=== PATIENT | female | born 1990 | race Caucasian/White ===

== ENCOUNTER 2024-05-18 12:57 | Outpatient (RCR) | payer OTHER, SELFPAY ==
--- OUTSIDE RECORDS SUMMARY | 2024-05-16 15:49 | XMS_ITS | Clinical Summary ---
Author Organization [facility] Address Formerly [facility] [place] [address] Care Team Providers Care Car Deliverer Name Role Phone Manuela Ram MD Primary Care Provider + Allergies Active Allergy Reactions Criticality Noted Date Comments Amoxicillin Rash Low 05/16/2020 Medications LEXAPRO 10 MG tablet 11/26/2023 Active Cetirizine HCl (ZYRTEC ALLERGY) 10 MG Cap 11/30/2021 Active Fluticasone Propionate (FLONASE ALLERGY RELIEF NA) Active VIENVA 0.1-20 MG-MCG tablet 12/01/2023 Activ e semaglutide-weig ht management (WEGOVY) 0.25 mg/dose injection (PEN)Indications :Weight Loss Inject 0.25 mg into the skin once a week. Indications : Weight Loss 6 mL 3 12/01/2023 Active Active Problems Problem Noted Date Diagnosed Date Anxiety and depression 12/01/2023 Overview (12/01/2023): Working with psychiatry, just started lexapro. [facility], [facility]. Sees her virtually. Assessment & Plan (12/01/2023 2:37 PM CDT): Managed by psychiatry. Seasonal allergic rhinitis due to pollen 024 Obesity (BMI 30-39.9) 12/01/2023 Overview (12/01/2023): Patient would like to spend some time focusing on her mental health and weight before attempting another . She is interested in a GLP-1. She has no family history of thyroid cancer or personal history of pancreatitis. Assessment & Plan (12/01/2023 2:38 PM CDT): Discussed the option of GLP-1. Discussed major barriers of insurance coverage and shortages. Discussed side effects and benefits. We will initiate Wegovy and see whether it is covered. Patient would start OCP prior to treatment if she decides to pursue. In the meantime, discussed [employer] plant-based diet for weight management. She is quite interested in taking this approach as well. She will follow-up in 1 month if she begins Wegovy. Family History Medical History Relation Comments Hyperlipidemia Father fatty liver Father Thyroid Mother Relation Status Comments Father Alive Mother Alive Social History Tobacco Use Types Packs/Day Years Used Date Smoking Tobacco: Former Cigarettes 2 - 2012 Passive Smoke Exposure: Never Smokeless Tobacco: Never Tobacco Cessation:Counseling Given: No Comments:Social smoker Alcohol Use Standard Drinks/Week Comments Yes 0 (1 standard drink = 0.6 oz pur e alcohol) soc ially PHQ-2 Answer Date Recorded Patient Health Questionnaire-2 Score 0 12/01/2023 Comments Unknown Sex and Gender Information Value Date Recorded Sex Assigned at Not on file Legal Sex Female 12:55 PM CDT Gender Identity Not on file Sexual Orientation Not on file Last Filed Vital Signs Vital Sign Reading Time Taken Comments Blood Pressure 110/70 12/01/2023 1:34 PM CDT Pulse 81 12/01/2023 1:34 PM CDT Temperature 36.7 C (98.1 F) 12/01/2023 1:34 PM CDT Respiratory Rate - - Oxygen Saturation 97% 12/01/2023 1:34 PM CDT Inhaled Oxygen Concentration - - Weight 86.8 kg (191 lb 6.4 oz) 12/01/2023 1:34 P M CDT Height 162.6 cm (5' 4) 12/01/2023 1:34 PM CDT Body Mass Index 32.85 12/01/2023 1:34 PM CDT Plan of Treatment Upcoming Encounters Date Type Department Care Team (Late st Contact Info) Description 06/03/2024 9:30 AM CDT Office Visit [facility] - [place] [place] [id number] Manuela Ram MD [address] [place] [phone] Health Maintenance Due Date Last Done Comments Cervical Cancer Screening Pa p Smear (Age 30 to 64) Every 3 Years 1990 Annual Physical 1993 Hepatitis C 2008 DTaP, Tdap and Td Vaccines ( 1 - Tdap) 2009 Hepatitis B Vaccines (1 of 3 - 19+ 3-dose series) 2009 COVID-19 Vaccine ( - 2023-2 5 season) 2023 Influenza Adult (#1) 2023 PHQ-2 (Physician [place]) 02/24/2024 12/01/2023 Cervical Cancer Screening Pa p with HPV Testing (Age 30 to 64) Every 5 Years 12/03/2028 12/04/2023, 08/15/2020, 08/09/2020 Cervical Cancer Screening wi th HPV 12/03/2028 HPV Vaccines Aged Out No longer eligi ble based on patient's age to complete this topic Meningococcal B Vaccine Aged Out No l onger eligible based on patient's age to complete this topic Meningococcal Vaccine Aged Out No jonas ivonne eligible based on patient's age to complete this topic Pneumococcal Vaccine: Pediatrics (0 to 5 Years) and At-Risk Patients (6 to 64 Years) Aged Out No longer eligible b ased on patient's age to complete this topic RSV Immunizations Under 20 Months Aged Out No longer eligible b ased on patient's age to complete this topic Procedures Procedure Name Priority Date/Time Associated Diagnosis Comments OUTSIDE CYTOPATH CERV/VAG IN TERPRET (PAP) 12/04/2023 from Last 3 Months or Most Recently Relevant to Health Maintenance Results * PAP SMEAR WITH HPV (12/04/2023) 12/04/2023 [facility] Scanned SCANNING Final Resu lt from Last 3 Months or Most Recently Relevant to Health Maintenance Insurance [employer] Care Teams Car Deliverer Relationship Specialty Start Date End Date Manuela Ram MD [address] [place] [phone] PCP - General FAMILY PRACTICE 12/01/23
--- OUTSIDE RECORDS SUMMARY | 2024-05-16 15:50 | XMS_ITS ---
Author Organization [employer] Address [address] [place] [address] Care Team Providers Care Public Service Director Name Role Phone Sona Luis Unavailable [phone] REASON FOR VISIT Control Prescription Medications Medication SIG (Take, Route, Fr equency, Duration) Notes Start Date End Date Status Sronyx 0.1-20 MG-MCG 1 tablet Orally Onc e a day for 84 days 03/24/2022 Active Social History Sex Assigned At : Social History Observation Description Sex Assigned At Female Encounters Encounter Location Date Provider Diagnosis Raheem Casillas [address] [place] [address] 05/22/2023 Sona Luis care and examination Z39.2 Assessments Encounter Date Diagnosis (ICD Code) Assessment Notes Treatment Notes Treatment Clinical Notes Section Notes 05/22/2023 care and examination (ICD-10 - Z39.2) Plan Of Treatment Medication Medication Name Sig Start Date Stop Date Notes Sronyx 0.1-20 MG-MCG 1 tablet Orally Onc e a day for 84 days 03/24/2022 Progress Notes * LOWELL WALLEROB:1990 ( 32 yo F)Acc No.[id number]:05/22/2023 Patient: John MELANIETiffanyJAMAICA :1990 A ge:32 Y S ex:Female Address:[facility] [place] [address] * Refills Refill Sronyx Tablet, 0.1-20 MG-MCG, Orally, 3 Pack, 1 tablet, Once a day, 84 days, Refills=0 * true * Date: Generated for Gayle lawton/Lesley/Ryanneitting on: 0 05/16/2024 01:49 PM MST
--- OUTSIDE RECORDS SUMMARY | 2024-05-16 15:50 | XMS_ITS | Data Portability ---
Author Organization [facility] [place] Address [address] [place] [address] Assessment No assessment recorded. Plan of Treatment Reminders Order Date Submit Date Provider Last Modified By Organization Details Last Modified Time Details Appointments U/S OB SNEAK PEAK 2024 01:00P M ULTRASOUND Not available Not available Not available OB SCREEN 2024 01:30P M RENU SANCHEZ MD Not available Not available Not available Lab None recorde d. Referral None recorde d. Procedures None recorde d. Surgeries None recorde d. Imaging US, obstetr ic, transva ginal 2023 024 [email or web address] [place], [address], [place], [address], 10/14/2023 12:54:02 US, obstetr ic, transva ginal 2023 024 [email or web address] [place], [address], [place], [address], 10/07/2023 15:22:37 Medication Orders None recorde d. Patient TargetsNo targets recorded. Patient InstructionsNo instructions recorded. Reason for Referral None Reported. Results Created Date Observation Date Name Description Value Unit Range Abnormal Flag Note LastModifiedBy Organization Detail LastModifiedTime 10/23/19 24 10/23/2023 BHCG, QUANT ITATI VE B-HCG 191.0 mIU/m L This assay was perfo rmed using [employer] ratio n reage nts and test kits. Value s obtai annabelle with other assay metho ds or kits canno t be used inter [facility] . Refer ence Range s: Non-p regna nt, preme nopau lubna women : 0.0-5 .3 mIU/m L Postm enopa usal women : 0.0-7 .0 mIU/m L Barbie l Pregn andreina: Gesta chantel l Age bHCG Conc. - mIU/m L 3 Weeks 5.8 - 71.7 4 Weeks 9.5 - 750 5 Weeks 217-7 138 6 Weeks 158 - 31,79 5 7 Weeks 3,697 - 162,5 63 8 Weeks 32,06 5 - 149,5 71 9 Weeks 63,80 3 - 151,4 10 10 Weeks 46,50 9 - 186,9 77 12 Weeks 27,83 2 - 210,6 12 14 Weeks 13,95 0 - 62,53 0 15 Weeks 12,03 9 - 70,97 1 16 Weeks 9,040 - 56,45 1 17 Weeks 8,175 - 55,86 8 18 Weeks 8,099 - 58,17 6 Not Available [facility] (Lab) [address], [place], [address], 10/24/2023 07:06:02 11/02/19 24 11/02/2023 BHCG, QUANT ITATI VE B-HCG 4.9 mIU/m L This assay was perfo rmed using [employer] n reage nts and test kits. Value s obtai annabelle with other assay metho ds or kits canno t be used inter [facility] . Refer ence Range s: Non-p regna nt, preme nopau lubna women : 0.0-5 .3 mIU/m L Postm enopa usal women : 0.0-7 .0 mIU/m L Barbie l Pregn andreina: Gesta chantel l Age bHCG Conc. - mIU/m L 3 Weeks 5.8 - 71.7 4 Weeks 9.5 - 750 5 Weeks 217-7 138 6 Weeks 158 - 31,79 5 7 Weeks 3,697 - 162,5 63 8 Weeks 32,06 5 - 149,5 71 9 Weeks 63,80 3 - 151,4 10 10 Weeks 46,50 9 - 186,9 77 12 Weeks 27,83 2 - 210,6 12 14 Weeks 13,95 0 - 62,53 0 15 Weeks 12,03 9 - 70,97 1 16 Weeks 9,040 - 56,45 1 17 Weeks 8,175 - 55,86 8 18 Weeks 8,099 - 58,17 6 Not Available [facility] (Lab) [address], [place], [address], 11/03/2023 10:07:15 10/07/19 24 10/07/2023 US, obste tric, trans vagin al No observ ation record ed. [email or web address] [address], [place], [address], 10/07/2023 12:59:01 10/07/19 24 10/07/2023 US, obste tric, follo w-up No observ ation record ed. [address] [facility], [place], [address], 10/07/2023 16:31:21 10/14/19 24 10/14/2023 US, obste tric, trans vagin al No observ ation record ed. [email or web address] [place] [address], [place], [address], 10/14/2023 11:43:02 10/14/19 24 10/14/2023 US, obste tric, trans vagin al No observ ation record ed. [email or web address] [address], [place], [address], 10/15/2023 11:36:04 Result Notes None recorded. Procedures Surgical History Date Name Laterality Status Provider Name and Address Organization Details Recorded Time 3 Date of Last Pap Smear completed Ame Mendoza [facility] 10/07/2023 12:56:08 2 Date of Last Mammogram completed Ame Mendoza [facility] 10/07/2023 12:56:08 4 procedure on back completed Ame Mendoza [facility] 10/21/2023 20:53:20 2 Colposcopy completed Ame Mendoza [facility] 10/07/2023 13:07:34 2 Colposcopy completed Ame Mendoza [facility] 10/21/2023 20:52:20 8 extraction of wisdom tooth completed Ame Mendoza [facility] 10/21/2023 20:52:48 Imaging Results Imaging Date Name Status LastModified by Organization Details LastModified Time 10/07/2023 US, obstetric, transvaginal completed [facility] [address], [place], [address], 10/07/2023 12:59:01 10/07/2023 US, obstetric, follow-up completed [email or web address], [place], [address], 10/07/2023 16:31:21 10/14/2023 US, obstetric, transvaginal completed [email or web address] [place] [address] [address], [place], [address], 10/14/2023 11:43:02 10/14/2023 US, obstetric, transvaginal completed [address], [place], [address], 10/15/2023 11:36:04 Procedure Notes None recorded. Medical Equipment None Reported. Allergies Allergen ID Allergen Name Allergen Category Reaction Reaction Severity Criticality Documentation Date Start Date Code Code System Note Provider Name and Address Organization Details Recorded Time 80935 amoxicill in medicatio n rash mild Not available 10/07/2023 723 RxNorm Ame rico [facility] 08/14/202 4 12:56:08 Medications Name Sig Start Date Stop Date Status Note LastModified by Organization Details LastModified Time fluoxetine 20 mg tablet TAKE 1 TABLET BY MOUTH DAILY DIRECTED 05/13 completed Not Available Not Available Not Available misoprostol 200 mcg tablet INSERT 4 TABLETS VAGINALLY ONCE 05/13 completed Not Available Not Available Not Available fluoxetine 10 mg capsule TAKE ONE CAPSULE BY MOUTH EVERY DAY 05/13 completed Not Available Not Available Not Available cefdinir 300 mg capsule TAKE 1 CAPSULE BY MOUTH EVERY 12 HOURS FOR 10 DAYS 05/13 completed Not Available Not Available Not Available escitalopra m 10 mg tablet TAKE 1 TABLET BY MOUTH DAILY active Not Available Not Available No t Available Vienva 0.1 mg-20 mcg tablet Take 1 tablet every day by oral route. 2023 active Not Available Not Available Not Avai lable Alive active Not Available Not Available Not Available Wegovy 0.25 mg/0.5 mL subcutaneou s pen injector active Not Available Not Available Not Available Vitals Date Recorded Body height Body mass index (BMI) Body weight Systolic blood pressure Diastolic blood pressure Provider Name and Address Organization Details Last Updated DateTime 10/07/2023 162.56 cm 31.8 kg/m2 23821.59 g 120 mm[Hg] 82 mm[Hg] Ame Mendoza [facility] 12:55:47 Social History Question Answer Notes LastModified by Organizat ion Details LastModified Time Tobacco Smoking Status Former Smoker [facility] 10/21/2023 20:51:53 What Is Your Level Of Alcohol Consumption? None [email or web address] Information not available 10/07/2023 If You Are , What Was Your Level Of Alcohol Consumption Prior To ? Occasional [email or web address] Information not available 10/21/2023 Are You Blind Or Do You Have Difficulty Seeing? No [email or web address] Information not available 10/07/2023 What Is Your Level Of Caffeine Consumption? Moderate [email or web address] Information not available 10/07/2023 How Much Tobacco Do You Chew? None [email or web address] Information not available 10/07/2023 In The 14 Days Before Symptom Onset, Have You Had Close Contact With A Laboratory-confir med COVID-19 While That Case Was Ill? No Information not available 10/07/2023 In The 14 Days Before Symptom Onset, Have You Had Close Contact With A Person Who Is Under Investigation For COVID-19 While That Person Was Ill? No [email or web address] Information not available 10/07/2023 Have You Been To An Area Known To Be High Risk For COVID-19? No Information not available 10/07/2023 Are You Deaf Or Do You Have Serious Difficulty Hearing? No Information not available 10/07/2023 What Type Of Diet Are You Following? REGULAR [email or web address] Information not available 10/07/2023 What Is The Highest Grade Or Level Of School You Have Completed Or The Highest Degree You Have Received? 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 Yes [email or web address] Information not available 10/07/2023 Do You Use Protection During Sex? No [email or web address] Information not available 10/07/2023 Do You Use Your Seat Belt Or Car Seat Routinely? Yes [email or web address] Information not available 10/07/2023 Do You Have Smoke And Carbon Monoxide Detectors In Your Home? Yes Information not available 10/07/2023 How Much Tobacco Do You Smoke? No Information not available 10/07/2023 Do You Feel Stressed (tense, Restless, Nervous, Or Anxious, Or Unable To Sleep At Night)? [id number] [email or web address] Information not available 10/07/2023 Do You Use Any Illicit Or Recreational Drugs? No [email or web address] Information not available 10/07/2023 Do You Use Sunscreen Routinely? Yes Information not available 10/07/2023 How Many Years Have You Smoked Tobacco? 0 [email or web address] Information not available 10/07/2023 Have You Used IV Drugs? No [email or web address] Information not available 10/07/2023 Sex: Unknown Functional Status Question Answer Note LastModified by Organizat ion Details LastModified Time Do you have difficulty walking or climbing stairs? No [email or web address] Information not available 10/21/2023 Are you able to walk? YESWOREST [email or web address] Information not available 10/07/2023 Are you able to care for yourself? Yes [email or web address] Information not available 10/21/2023 Do you have difficulty dressing or bathing? No [email or web address] Information not available 10/21/2023 What is your exercise level? Moderate [email or web address] Information not available 10/07/2023 Mental Status None recorded. Family History Relationship Description Onset Age of this Age Resolved Age Notes LastModified by Organization Details LastModified Time Maternal Uncle Diabetes mellitus 40 [email or web address] Not available 10/06 12:56:08 Sister High risk 30 [email or web address] Not available 10/06 12:56:08 Paternal Grandmother Malignant tumor of lung [email or web address] Not available 10/20 20:51:10 Medical History Condition Response Allergies (Food, seasonal, environmental ) N Other N Breast Cancer N Drug/Latex Allergies/Reactions Y Blood Transfusion N Dermatologic Disorders N Lung Disease N Defects or Inherited Disease N Breast Problem N Gestational Diabetes N Hematologic disorders N Anesthesia Complications N History of STI N Deep Vein Thrombosis N Polycystic ovary syndrome N Anxiety Disorder Y Autoimmune disease N Arthritis N Infertility N Polyps N Acid Reflux (GERD) N History of abnormal pap Y Cancer N Stroke N Varicosities N Neurologic/Epilepsy Y Endometriosis N High Cholesterol N Headaches N Fibromyalgia N Kidney Disease N Heart Problems N Kidney or Bladder Problems N Thyroid Problems N GI Problems N Eating Disorder N Anemia N Art (IVF or FET) N Psychiatric Illness N Ovarian Cancer N Diabetes N Pulmonary (TB, Asthma) N Hepatitis/Liver Disease N No Past Medical History N Eczema N Urinary Tract Infection N Abuse/Domestic Violence N Asthma N Trauma/Violence N Depression/ depression Y Heart Disease N Pre-Eclampsia N Hypertension N Osteoporosis N Thrombophilias N Gynecological History Statement/Question Response Abnormal Pap Y Date of Last Mammogram 06/23/2021 Date of LMP 08/11/2023 N On BCP's at Conception? N STIs/STDs Y Was last menstrual period normal Y HPV Vaccine Y Colposcopy 02/23/2011 Duration of Flow (days) 5 Current Control Method Age at First Child 24 Date of control 06/24/2023 Date of Last Colonoscopy Frequency of Cycle (Q days) 28 Sexually Active? Y Date of DEXA bone scan Age of first menstrual cycle 14 Date of Last Pap Smear 06/23/2022 Sexual Problems? N LMP Approximate N Obstetrics History GPAL:G 3 P 3 0 0 3 Type Value Full Term 3 Living 3 Total 3 Past Encounters Encounter ID Performer Location Encounter Start Date Encounter Closed Date Diagnosis/Indication Diagnosis SNOMED-CT Code Diagnosis ICD10 Code Diagnosis Note [id number] Lyubov Hernandez [place] [address],[place] [address] 10/07/2023 11:49:02 10/07/2023 12:33:14 Threatened miscarriage 43495037 O20.0 Z3A.01 [id number] RENU SANCHEZ MD [place] [address],[place] [address] 10/07/2023 11:50:36 10/15/2023 11:04:36 Threatened miscarriage 83904929 O20.0 - embryo seen however not c/w dates- FHT intermitte nt, 116bpm when visualized - discussed threatened miscarriag e, recommend repeat US in 1 week to reevaluate - bleeding and return precaution s given [id number] Padma Moss [place] [address],[place] [address] 10/14/2023 10:28:45 10/14/2023 11:25:21 Missed miscarriage 72577857 O02.1 Z3A.01 [id number] RENU SANCHEZ MD [place] [address],[place] [address] 10/15/2023 10:08:06 10/15/2023 11:20:15 Missed miscarriage 29767662 O02.1 - US c/w missed miscarriag e today, no FHT and no growth in embryo since prior- denies cramping or bleeding- discussed risks and benefits of expectant vs medical vs surgical management - discussed bleeding precaution s- patient desires medical management , rediscusse d risks of this management options and return precaution s- will send rx for cytotec, administra tion method discussed- patient to call clinic once bleeding has stopped to schedule repeat hCG Health Concerns Section Related Observation LastModified by Organization Marlon walters LastModified Time None Recorded Concern Status LastModified by Organization Details LastModified Time None Recorded Advance Directives Directive None Recorded Payers Encounter Date Sequence Insurance Name Policy Number Policy Mckee Covered Member ID Mckee Member ID Guarantor Name 10/07/2023 1 [facility] [id number] Claudy Sridhar [id number] 2 Nieves Waller 10/07/2023 1 [facility] [id number] Claudy Sridhar [id number] 2 Nieves Waller 10/14/2023 1 [facility] [id number] Claudy Sridhar [id number] 2 Nieves Waller 10/14/2023 1 [facility] [id number] Claudy Waller [id number] 2 Nieves Waller Notes Date Note Type Note Provider Name and Address Organization Details Recorded Time 10/07/2023 text/html Patient presents for ultrasound follow up and to establish care. She reports LMP around 08/09-. She reports a history regular periods. Was previously on OCPs 2 months ago. Mild spotting no heavy cramping. history otherwise uncomplicated. x3. No other medical or family history. RENU SANCHEZ MD [address], [place], [address], [facility] 10/15/2023 10:59:19 10/14/2023 text/html Presents for ultrasound followup. Pelvic US last week demonstrated a s/d discrepancy in embryo size, as well as intermittent FHR with max of 116bpm. Discussed repeat US today to evaluate for continuing vs miscarriage. Denies bleeding or cramping RENU SANCHEZ MD [address], [place], [address], [facility] 10/15/2023 11:18:44 OBGyn Episode Ob Episode Information Episode Created Date Number of Fetuses Patient Bloodtype Patient rh Status Prepregnancy Weight lbs Domestic Partner Domestic Partner Phone Father Name Loft Worker Head Status 10/21/19 24 1 CLOSED Fetus Data First Name Last Name Admitted to NICU Weight (g) Sex Living Outcome Pediatric Complications Fetus ID Race Codes Race Delivery Type 3742.13 4 M Full Term [id number] Vaginal Delivery Damien Calculation Initial Damien Date Initial Exam Date Initial Exam Provider Initial Ultrasound Date Last Menstrual Period Date Ultra Sound Weeks Gestation 0 Eighteen To Twenty Week Damien Update Ultra Sound Date Fundal Height At Umbil Quickening Date Ultra Sound Latest Weeks Gestation Final Damien Confirmed By Final Damien Confirmed Date Final Damien Date Ultra Sound Latest Days Gestation 0 0 Menstrual History Last Menstrual Date Menses Monthly On Bcp Conception Prior Menses Frequency Hcg Plus Date Menarche Onset Age Delivery Information Delivery Date Delivery Type Labor Anesthesia Weeks Gestation Incision Type Labor Labor Length Hrs Delivered By Post Complications Tubal Sterilization Discharge Date Comments 5 39 Discharge Information Feeding Method Contraceptive Method Maternal HG B and HCT Levels Ob Episode Information Episode Created Date Number of Fetuses Patient Bloodtype Patient rh Status Prepregnancy Weight lbs Domestic Partner Domestic Partner Phone Father Name Loft Worker Head Status 10/21/19 24 1 CLOSED Fetus Data First Name Last Name Admitted to NICU Weight (g) Sex Living Outcome Pediatric Complications Fetus ID Race Codes Race Delivery Type 3515.33 8 M Full Term [id number] Vaginal Delivery Damien Calculation Initial Damien Date Initial Exam Date Initial Exam Provider Initial Ultrasound Date Last Menstrual Period Date Ultra Sound Weeks Gestation 0 Eighteen To Twenty Week Damien Update Ultra Sound Date Fundal Height At Umbil Quickening Date Ultra Sound Latest Weeks Gestation Final Damien Confirmed By Final Damien Confirmed Date Final Damien Date Ultra Sound Latest Days Gestation 0 0 Menstrual History Last Menstrual Date Menses Monthly On Bcp Conception Prior Menses Frequency Hcg Plus Date Menarche Onset Age Delivery Information Delivery Date Delivery Type Labor Anesthesia Weeks Gestation Incision Type Labor Labor Length Hrs Delivered By Post Complications Tubal Sterilization Discharge Date Comments 2 39 Discharge Information Feeding Method Contraceptive Method Maternal HG B and HCT Levels Ob Episode Information Episode Created Date Number of Fetuses Patient Bloodtype Patient rh Status Prepregnancy Weight lbs Domestic Partner Domestic Partner Phone Father Name Loft Worker Head Status 10/21/19 24 1 CLOSED Fetus Data First Name Last Name Admitted to NICU Weight (g) Sex Living Outcome Pediatric Complications Fetus ID Race Codes Race Delivery Type 3685.43 5 M Full Term [id number] Vaginal Delivery Damien Calculation Initial Damien Date Initial Exam Date Initial Exam Provider Initial Ultrasound Date Last Menstrual Period Date Ultra Sound Weeks Gestation 0 Eighteen To Twenty Week Damien Update Ultra Sound Date Fundal Height At Umbil Quickening Date Ultra Sound Latest Weeks Gestation Final Damien Confirmed By Final Damien Confirmed Date Final Damien Date Ultra Sound Latest Days Gestation 0 0 Menstrual History Last Menstrual Date Menses Monthly On Bcp Conception Prior Menses Frequency Hcg Plus Date Menarche Onset Age Delivery Information Delivery Date Delivery Type Labor Anesthesia Weeks Gestation Incision Type Labor Labor Length Hrs Delivered By Post Complications Tubal Sterilization Discharge Date Comments 1 39 Discharge Information Feeding Method Contraceptive Method Maternal HG B and HCT Levels Ob Episode Information Episode Created Date Number of Fetuses Patient Bloodtype Patient rh Status Prepregnancy Weight lbs Domestic Partner Domestic Partner Phone Father Name Loft Worker Head Status 05/14/19 25 1 CLOSED Fetus Data First Name Last Name Admitted to NICU Weight (g) Sex Living Outcome Pediatric Complications Fetus ID Race Codes Race Delivery Type , Spontane ous 10223 Damien Calculation Initial Damien Date Initial Exam Date Initial Exam Provider Initial Ultrasound Date Last Menstrual Period Date Ultra Sound Weeks Gestation 0 Eighteen To Twenty Week Damien Update Ultra Sound Date Fundal Height At Umbil Quickening Date Ultra Sound Latest Weeks Gestation Final Damien Confirmed By Final Damien Confirmed Date Final Damien Date Ultra Sound Latest Days Gestation 0 0 Menstrual History Last Menstrual Date Menses Monthly On Bcp Conception Prior Menses Frequency Hcg Plus Date Menarche Onset Age Delivery Information Delivery Date Delivery Type Labor Anesthesia Weeks Gestation Incision Type Labor Labor Length Hrs Delivered By Post Complications Tubal Sterilization Discharge Date Comments 4 Discharge Information Feeding Method Contraceptive Method Maternal HG B and HCT Levels
--- OUTSIDE RECORDS SUMMARY | 2024-05-16 15:50 | XMS_ITS ---
Author Organization [facility] Address [address] [place] [address] Care Team Providers Care Leather Stitcher Name Role Phone LuisSona Unavailable [phone] REASON FOR VISIT RE: RE: Control Prescription Social History Sex Assigned At : Social History Observation Description Sex Assigned At Female Encounters Encounter Location Date Provider Diagnosis Raheem Casillas [address] [place] [address] 05/25/2023 Sona Luis Plan Of Treatment No Information Progress Notes * LOWELL SHEROB:1990 ( 32 yo F)Acc No.[id number]:05/25/2023 Patient: JAMAICA ALICEA :1990 A ge:32 Y S ex:Female Address:[address] [place] [address] * true * Date: Generated for Printi ng/Fagilmag/eTransmitting on: 0 05/16/2024 01:50 PM MST
== END 2024-08-14 23:59 | disposition home or self-care (01) ==
LOC: ANHLAB 12:57
PROVIDERS: PCP Student in an Organized Health Care Education/Training Program; Visit Provider Obstetrics & Gynecology
DX: Z87.59 Personal history of other complications of pregnancy, childbirth and the puerperium (principal)
CPT/HCPCS: 36415; 84702

== ENCOUNTER 2024-05-20 10:59 | Outpatient (CLI) | payer OTHER, SELFPAY ==
--- OUTSIDE RECORDS SUMMARY | 2024-05-20 12:02 | XMS_ITS | Clinical Summary ---
Author Organization [facility] Address [facility] [place] [address] Care Team Providers Care Ice Cream Dipper Name Role Phone Manuela Ram MD Primary [...] (12/01/2023): Working with psychiatry, just started lexapro. [facility], Aida MEAD. Sees her virtually. Assessment [...] P M CDT Height 162.6 cm (5' 4 ) 12/01/2023 1:34 PM CDT Body Mass Index 32.85 12/01/2023 1:34 PM CDT Plan of Treatment Upcoming Encounters Date Type Department Care Team (Late st Contact Info) Description 06/03/2024 9:30 AM CDT Office Visit [facility] Family Medicine - [address] [place] [address] Manuela Ram MD [address] [place] [address] Health Maintenance Due Date Last Done Comments Cervical Cancer Screening Pa p Smear (Age 30 to 64) Every 3 Years 1990 Annual Physical 1993 Hepatitis C 2008 DTaP, Tdap and Td Vaccines ( 1 - Tdap) 2009 Hepatitis B Vaccines (1 of 3 - 19+ 3-dose series) 2009 COVID-19 Vaccine ( - 2023-2 5 season) 2023 Influenza Adult (#1) 2023 PHQ-2 (Physician [place]) 02/24/2024 12/01/2023 Cervical Cancer Screening Pa p [...] to Health Maintenance Insurance [employer] Care Teams Ice Cream Dipper Relationship Specialty Start Date End Date Manuela Ram MD [address] [place] [address] PCP - General FAMILY PRACTICE 12/01/23
--- OUTSIDE RECORDS SUMMARY | 2024-05-20 12:03 | XMS_ITS ---
Author Organization [employer] Address [address] [place] [address] Care Team Providers Care Brake Assembler Name Role Phone Sona Luis Unavailable [phone] REASON FOR VISIT Control Prescription Medications Medication SIG (Take, Route, Fr equency, Duration) Notes Start Date End Date Status Sronyx 0.1-20 MG-MCG 1 tablet Orally Onc e a day for 84 days 03/24/2022 Active Social History Sex Assigned At : Social History Observation Description Sex Assigned At Female Encounters Encounter Location Date Provider Diagnosis Raheem Casillas [address] [place] [address] 05/22/2023 Sona Luis care and examination Z39.2 [...] * LOWELL WALLEROB:1990 ( 32 yo F)Acc No.[id number]:05/22/2023 Patient: John MELANIETiffanyJAMAICA :1990 A ge:32 Y S ex:Female Address:[facility] [place] [address] * Refills Refill Sronyx Tablet, 0.1-20 MG-MCG, Orally, 3 Pack, 1 tablet, Once a day, 84 days, Refills=0 * true * Date: Generated for Gayle lawton/Lesley/Ryanneitting on: 0 05/20/2024 10:02 AM MST
--- OUTSIDE RECORDS SUMMARY | 2024-05-20 12:03 | XMS_ITS | Data Portability ---
Author Organization [facility] [place] Address [address] [place] [address] [place] [address] Assessment No assessment recorded. Plan of Treatment [...] obstetr ic, transva ginal 2023 024 [email or web address] [place], [address], [place], [address], 10/14/2023 12:54:02 US, obstetr ic, transva ginal 2023 024 [email or web address] [place], [address], [place], [address], 10/07/2023 15:22:37 Medication Orders None recorde d. [...] or kits canno t be used inter [facility] . Refer ence Range s: Non-p regna [...] Weeks 8,099 - 58,17 6 Not Available [facility] (Lab) [address] [facility], [place], [address], 10/24/2023 07:06:02 11/02/19 24 11/02/2023 BHCG, QUANT ITATI VE B-HCG 4.9 mIU/m L This assay was perfo rmed using [employer] ratio n reage nts and test kits. Value s obtai annabelle with other assay metho ds or kits canno t be used [facility] . Refer ence Range s: Non-p regna [...] Weeks 8,099 - 58,17 6 Not Available [facility] (Lab) [address], [place], [address], 11/03/2023 10:07:15 10/07/19 24 10/07/2023 US, obste tric, trans vagin al No observ ation record ed[email or web address] [address], [place], [address], 10/07/2023 12:59:01 10/07/19 24 10/07/2023 US, obste tric, follo w-up No observ ation record ed. [email or web address] [facility], [place], [address], 10/07/2023 16:31:21 10/14/19 24 10/14/2023 US, obste tric, trans vagin al No observ ation record ed. [email or web address] [place] [address], [place], [address], 10/14/2023 11:43:02 10/14/19 24 10/14/2023 US, obste tric, trans vagin al No observ ation record ed. [email or web address] [address], [place], [address], 10/15/2023 11:36:04 Result Notes None recorded. Procedures Surgical History Date Name Laterality Status Provider Name and Address Organization Details Recorded Time 3 Date of Last Pap Smear completed Ame Mendoza [facility] 10/07/2023 12:56:08 2 Date of Last Mammogram completed Ame Menodza [facility] 10/07/2023 12:56:08 4 procedure on back completed Ame Mendoza [facility] 10/21/2023 20:53:20 2 Colposcopy completed Ame Mendoza [facility] 10/07/2023 13:07:34 2 Colposcopy completed Ame Mendoza [facility] 10/21/2023 20:52:20 8 extraction of wisdom tooth completed Ame Mendoza [facility] 10/21/2023 20:52:48 Imaging Results Imaging Date Name Status LastModified by Organization Details LastModified Time 10/07/2023 US, obstetric, transvaginal completed [facility] [address], [place], [address], 10/07/2023 12:59:01 10/07/2023 US, obstetric, follow-up completed [email or web address], [place], [address], 10/07/2023 16:31:21 10/14/2023 US, obstetric, transvaginal completed [email or web address] [place] [address] [address], [place], [address], 10/14/2023 11:43:02 10/14/2023 US, obstetric, transvaginal completed [address], [place], [address], 10/15/2023 11:36:04 Procedure Notes None recorded. Medical Equipment None Reported. Allergies Allergen ID Allergen Name Allergen Category Reaction Reaction Severity Criticality Documentation Date Start Date Code Code System Note Provider Name and Address Organization Details Recorded Time 00331 amoxicill in medicatio n rash mild Not available 10/07/2023 723 RxNorm Ame rico [facility] 08/14/202 4 12:56:08 Medications Name Sig [...] Updated DateTime 10/07/2023 162.56 cm 31.8 kg/m2 51824.59 g 120 mm[Hg] 82 mm[Hg] Ame Mendoza [facility] 12:55:47 Social History Question Answer Notes LastModified by Organizat ion Details LastModified Time Tobacco Smoking Status Former Smoker Ame Mendoza [facility] 10/21/2023 20:51:53 What Is Your Level Of Alcohol Consumption? None Information not available 10/07/2023 If You Are , What Was Your Level Of Alcohol Consumption Prior To ? Occasional [email or web address] Information not available 10/21/2023 Are You Blind Or Do You Have Difficulty Seeing? No [email or web address] Information not available 10/07/2023 What Is Your Level Of Caffeine Consumption? Moderate Information not available 10/07/2023 How Much Tobacco Do You Chew? None [email or web address] Information not available 10/07/2023 In The 14 Days Before Symptom Onset, Have You Had Close Contact With A Laboratory-confir med COVID-19 While That Case Was Ill? No [email or web address] Information not available 10/07/2023 In The 14 Days Before Symptom Onset, Have You Had Close Contact With A Person Who Is Under Investigation For COVID-19 While That Person Was Ill? No [email or web address] Information not available 10/07/2023 Have You Been To An Area Known To Be High Risk For COVID-19? No [email or web address] Information not available 10/07/2023 Are You Deaf Or Do You Have Serious Difficulty Hearing? No [email or web address] Information not available 10/07/2023 What Type Of Diet Are You Following? REGULAR [email or web address] Information not available 10/07/2023 What Is The Highest Grade Or Level Of School You Have Completed Or The Highest Degree You Have Received? 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 Yes [email or web address] Information not available 10/07/2023 Do You Use Protection During Sex? No Information not available 10/07/2023 Do You Use Your Seat Belt Or Car Seat Routinely? Yes Information not available 10/07/2023 Do You Have Smoke And Carbon Monoxide Detectors In Your Home? Yes [email or web address] Information not available 10/07/2023 How Much Tobacco Do You Smoke? No [email or web address] Information not available 10/07/2023 Do You Feel Stressed (tense, Restless, Nervous, Or Anxious, Or Unable To Sleep At Night)? [id number] [email or web address] Information not available 10/07/2023 Do You Use Any Illicit Or Recreational Drugs? No [email or web address] Information not available 10/07/2023 Do You Use Sunscreen Routinely? Yes [email or web address] Information not available 10/07/2023 How Many Years Have You Smoked Tobacco? 0 Information not available 10/07/2023 Have You Used IV Drugs? No [email or web address] Information not available 10/07/2023 Sex: Unknown Functional Status Question Answer Note LastModified by Organizat ion Details LastModified Time Do you have difficulty walking or climbing stairs? No [email or web address] Information not available 10/21/2023 Are you able to walk? YESWOREST Information not available 10/07/2023 Are you able to care for yourself? Yes [email or web address] Information not available 10/21/2023 Do you have difficulty dressing or bathing? No Information not available 10/21/2023 What is your exercise level? Moderate [email or web address] Information not available 10/07/2023 Mental Status None recorded. Family History Relationship Description Onset Age of this Age Resolved Age Notes LastModified by Organization Details LastModified Time Maternal Uncle Diabetes mellitus 40 [email or web address] Not available 10/06 12:56:08 Sister High risk 30 [email or web address] Not available 10/06 12:56:08 Paternal Grandmother Malignant tumor of lung [email or web address] Not available 10/20 20:51:10 Medical History Condition Response Allergies (Food, seasonal, environmental ) N Other N Breast Cancer N Drug/Latex Allergies/Reactions Y Blood Transfusion N Lung Disease N Dermatologic Disorders N Defects or Inherited Disease N Breast [...] SNOMED-CT Code Diagnosis ICD10 Code Diagnosis Note [id number] Lyubov Hernandez [place] [address],[place] [address] 10/07/2023 11:49:02 10/07/2023 12:33:14 Threatened miscarriage [id number] O20.0 Z3A.01 [id number] RENU SANCHEZ MD [place] [address],[place] [address] 10/07/2023 11:50:36 10/15/2023 11:04:36 Threatened miscarriage [id number] O20.0 - embryo seen however not c/w dates- FHT intermitte nt, 116bpm when visualized - discussed threatened miscarriag e, recommend repeat US in 1 week to reevaluate - bleeding and return precaution s given [id number] Padma Moss [place] [address],[place] [address] 10/14/2023 10:28:45 10/14/2023 11:25:21 Missed miscarriage [id number] O02.1 Z3A.01 [id number] RENU SANCHEZ MD [place] [address],[place] [address] 10/15/2023 10:08:06 10/15/2023 11:20:15 Missed miscarriage [id number] O02.1 - US c/w missed miscarriag e [...] Mckee Member ID Guarantor Name 10/07/2023 1 [facility] [id number] Claudy Sridhar [id number] 2 Nieves Waller 10/07/2023 1 [facility] [id number] Claudy Sridhar [id number] 2 Nieves Waller 10/14/2023 1 [facility] [id number] Claudy Sridhar [id number] 2 Nieves Waller 10/14/2023 1 [facility] [id number] Claudy Waller [id number] 2 Nieves Waller Notes Date Note Type [...] history. RENU SANCHEZ MD [address], [place], [address], [facility] 10/15/2023 10:59:19 10/14/2023 text/html Presents for ultrasound followup. Pelvic US last week demonstrated a s/d discrepancy in embryo size, as well as intermittent FHR with max of 116bpm. Discussed repeat US today to evaluate for continuing vs miscarriage. Denies bleeding or cramping RENU SANCHEZ MD [address], [place], [address], [facility] 10/15/2023 11:18:44 OBGyn Episode Ob Episode Information Episode Created Date Number of Fetuses Patient Bloodtype Patient rh Status Prepregnancy Weight lbs Domestic Partner Domestic Partner Phone Father Name Bellmaker Status 10/21/19 24 1 CLOSED Fetus Data First Name Last Name Admitted to NICU Weight (g) Sex Living Outcome Pediatric Complications Fetus ID Race Codes Race Delivery Type 3742.13 4 M Full Term 06458 Vaginal Delivery Damien Calculation Initial Damien Date [...] Domestic Partner Domestic Partner Phone Father Name Bellmaker Status 10/21/19 24 1 CLOSED Fetus Data First Name Last Name Admitted to NICU Weight (g) Sex Living Outcome Pediatric Complications Fetus ID Race Codes Race Delivery Type 3515.33 8 M Full Term 87783 Vaginal Delivery Damien Calculation Initial Damien Date [...] Domestic Partner Domestic Partner Phone Father Name Bellmaker Status 10/21/19 24 1 CLOSED Fetus Data First Name Last Name Admitted to NICU Weight (g) Sex Living Outcome Pediatric Complications Fetus ID Race Codes Race Delivery Type 3685.43 5 M Full Term 49593 Vaginal Delivery Damien Calculation Initial Damien Date [...] Domestic Partner Domestic Partner Phone Father Name Bellmaker Status 05/14/19 25 1 CLOSED Fetus Data First Name Last Name Admitted to NICU Weight (g) Sex Living Outcome Pediatric Complications Fetus ID Race Codes Race Delivery Type , Spontane ous 87078 Damien Calculation Initial Damien Date Initial Exam [...]
--- OUTSIDE RECORDS SUMMARY | 2024-05-20 12:03 | XMS_ITS ---
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 Name Role Phone LuisSona Unavailable [phone] REASON FOR VISIT RE: RE: Control Prescription Social History Sex Assigned At : Social History Observation Description Sex Assigned At Female Encounters Encounter Location Date Provider Diagnosis Raheem Casillas [address] [place] [address] 05/25/2023 Sona Luis Plan Of Treatment No Information Progress Notes * LOWELL SHEROB:1990 ( 32 yo F)Acc No.[id number]:05/25/2023 Patient: J[place] ALICEA :1990 A ge:32 Y S ex:Female Address:[address] [place] [address] * true * Date: Generated for Ranjani leighann/Marlag/eTransmitting on: 0 05/20/2024 10:02 AM MST
== END 2024-05-20 11:00 | disposition home or self-care (01) ==
LOC: ANHLAB 11:00
PROVIDERS: PCP Student in an Organized Health Care Education/Training Program; Visit Provider Obstetrics & Gynecology
DX: O20.0 Threatened abortion (principal)
CPT/HCPCS: 36415; 84702

== ENCOUNTER 2024-05-23 09:17 | Outpatient (CLI) | payer OTHER, SELFPAY ==
--- OUTSIDE RECORDS SUMMARY | 2024-05-23 10:00 | XMS_ITS ---
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 Name Role Phone Sona Luis Unavailable [phone] REASON FOR VISIT Control Prescription Medications Medication SIG (Take, Route, Fr equency, Duration) Notes Start Date End Date Status Sronyx 0.1-20 MG-MCG 1 tablet Orally Onc e a day for 84 days 03/24/2022 Active Social History Sex Assigned At : Social History Observation Description Sex Assigned At Female Encounters Encounter Location Date Provider Diagnosis Raheem Casillas [address] [place] [address] 05/22/2023 Sona Luis care and examination Z39.2 [...] * LOWELL WALLEROB:1990 ( 32 yo F)Acc No.[id number]:05/22/2023 Patient: John MELANIETiffanyJAMAICA :1990 A ge:32 Y S ex:Female Address:[facility] [place] [address] * Refills Refill Sronyx Tablet, 0.1-20 MG-MCG, Orally, 3 Pack, 1 tablet, Once a day, 84 days, Refills=0 * true * Date: Generated for Gayle lawton/Lesley/Ryanneitting on: 0 05/23/2024 08:00 AM MST
--- OUTSIDE RECORDS SUMMARY | 2024-05-23 10:00 | XMS_ITS | Data Portability ---
Author Organization [facility] [place] Address [address] [place] [address] [place] [address] Assessment No assessment recorded. Plan of Treatment Reminders Order Date Submit Date Provider Last Modified By Organization Details Last Modified Time Details Appointments FOLLOW UP 2024 01:45P M RENU SANCHEZ MD Not available Not available Not available U/S OB SNEAK PEAK 2024 01:00P M ULTRASOUND Not available Not available Not available OB SCREEN 2024 01:30P M RENU SANCHEZ MD Not available Not available Not available Lab None recorde d. Referral None recorde d. Procedures None recorde d. Surgeries None recorde d. Imaging US, obstetr ic, transva ginal 2023 024 [email or web address] [place], [address], [place], [address], 10/14/2023 12:54:02 US, obstetr ic, transva ginal 2023 024 [email or web address] [place], [address], [place], [address], 10/07/2023 15:22:37 Medication Orders None recorde d. [...] or kits canno t be used inter [facility] . Refer ence Range s: Non-p regna [...] Weeks 8,099 - 58,17 6 Not Available [facility] (Lab) [address], [place], [address], 10/24/2023 07:06:02 11/02/19 24 11/02/2023 BHCG, QUANT ITATI VE B-HCG 4.9 mIU/m L This assay was perfo rmed using [employer] ratio n reage nts and test kits. Value s obtai annabelle with other assay metho ds or kits canno t be used inter [facility] . Refer ence Range s: Non-p regna [...] Weeks 8,099 - 58,17 6 Not Available [facility] (Lab) [address], [place], [address], 11/03/2023 10:07:15 10/07/19 24 10/07/2023 US, obste tric, trans vagin al No observ ation record ed. [facility] [address], [place], [address], 10/07/2023 12:59:01 10/07/19 24 10/07/2023 US, obste tric, follo w-up No observ ation record ed. [email or web address] [address], [place], [address], 10/07/2023 16:31:21 10/14/19 24 10/14/2023 US, obste tric, trans vagin al No observ ation record ed. [email or web address] [place] [address], [place], [address], 10/14/2023 11:43:02 10/14/19 24 10/14/2023 US, obste tric, trans vagin al No observ ation record ed. [email or web address] [address], [place], [address], 10/15/2023 11:36:04 Result Notes None recorded. Procedures Surgical History Date Name Laterality Status Provider Name and Address Organization Details Recorded Time 3 Date of Last Pap Smear completed Ame Mendoza [facility] 10/07/2023 12:56:08 2 Date of Last Mammogram completed Ame Mendoza [facility] 10/07/2023 12:56:08 4 procedure on back completed Ame Mendoza [facility] 10/21/2023 20:53:20 2 Colposcopy completed Ame Mendoza [facility] 10/07/2023 13:07:34 2 Colposcopy completed Ame Mendoza [facility] 10/21/2023 20:52:20 8 extraction of wisdom tooth completed Ame Mendoza [facility] 10/21/2023 20:52:48 Imaging Results Imaging Date Name Status LastModified by Organization Details LastModified Time 10/07/2023 US, obstetric, transvaginal completed [facility] [address], [place], [address], 10/07/2023 12:59:01 10/07/2023 US, obstetric, follow-up completed [email or web address] [address], [place], [address], 10/07/2023 16:31:21 10/14/2023 US, obstetric, transvaginal completed [email or web address] [place] [address], [place], [address], 10/14/2023 11:43:02 10/14/2023 US, obstetric, transvaginal completed [address], [place], [address], 10/15/2023 11:36:04 Procedure Notes None recorded. Medical Equipment None Reported. Allergies Allergen ID Allergen Name Allergen Category Reaction Reaction Severity Criticality Documentation Date Start Date Code Code System Note Provider Name and Address Organization Details Recorded Time 34691 amoxicill in medicatio n rash mild Not available 10/07/2023 723 RxNorm Ame Mendoza null, [facility] 4 12:56:08 Medications Name Sig Start Date [...] t Available Vienva 0.1 mg-20 mcg tablet TAKE 1 TABLET BY MOUTH EVERY DAY active Not Available Not Available No t Available Alive active Not Available Not Available Not Available Wegovy 0.25 mg/0.5 mL subcutaneou s pen injector ADMINISTE R 0.25 MG UNDER THE SKIN 1 TIME A WEEK FOR WEIGHT LOSS active Not Available Not Available No t Available Vitals Date Recorded Body height Body mass index (BMI) Body weight Systolic blood pressure Diastolic blood pressure Provider Name and Address Organization Details Last Updated DateTime 10/07/2023 162.56 cm 31.8 kg/m2 48150.59 g 120 mm[Hg] 82 mm[Hg] Ame Mendoza [facility] 4 12:55:47 Social History Question Answer Notes LastModified by Organizat ion Details LastModified Time Tobacco Smoking Status Former Smoker Ame rico, [facility] 10/21/2023 20:51:53 What Is Your Level Of Alcohol Consumption? None [email or web address] Information not available 10/07/2023 If You Are , What Was Your Level Of Alcohol Consumption Prior To ? Occasional [email or web address] Information not available 10/21/2023 Are You Blind Or Do You Have Difficulty Seeing? No [email or web address] Information not available 10/07/2023 What Is Your Level Of Caffeine Consumption? Moderate [email or web address] Information not available 10/07/2023 How Much Tobacco Do You Chew? None [email or web address] Information not available 10/07/2023 In The 14 Days Before Symptom Onset, Have You Had Close Contact With A Laboratory-confir med COVID-19 While That Case Was Ill? No [email or web address] Information not available 10/07/2023 In The 14 Days Before Symptom Onset, Have You Had Close Contact With A Person Who Is Under Investigation For COVID-19 While That Person Was Ill? No [email or web address] Information not available 10/07/2023 Have You Been To An Area Known To Be High Risk For COVID-19? No [email or web address] Information not available 10/07/2023 Are You Deaf Or Do You Have Serious Difficulty Hearing? No [email or web address] Information not available 10/07/2023 What Type Of Diet Are You Following? REGULAR [email or web address] Information not available 10/07/2023 What Is The Highest Grade Or Level Of School You Have Completed Or The Highest Degree You Have Received? 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 Yes [email or web address] Information not available 10/07/2023 Do You Use Protection During Sex? No [email or web address] Information not available 10/07/2023 Do You Use Your Seat Belt Or Car Seat Routinely? Yes [email or web address] Information not available 10/07/2023 Do You Have Smoke And Carbon Monoxide Detectors In Your Home? Yes Information not available 10/07/2023 How Much Tobacco Do You Smoke? No [email or web address] Information not available 10/07/2023 Do You Feel Stressed (tense, Restless, Nervous, Or Anxious, Or Unable To Sleep At Night)? [id number] [email or web address] Information not available 10/07/2023 Do You Use Any Illicit Or Recreational Drugs? No [email or web address] Information not available 10/07/2023 Do You Use Sunscreen Routinely? Yes [email or web address] Information not available 10/07/2023 How Many Years Have You Smoked Tobacco? 0 [email or web address] Information not available 10/07/2023 Have You Used IV Drugs? No [email or web address] Information not available 10/07/2023 Sex: Unknown Functional Status Question Answer Note LastModified by Organizat ion Details LastModified Time Do you have difficulty walking or climbing stairs? No [email or web address] Information not available 10/21/2023 Are you able to walk? YESWOREST [email or web address] Information not available 10/07/2023 Are you able to care for yourself? Yes [email or web address] Information not available 10/21/2023 Do you have difficulty dressing or bathing? No Information not available 10/21/2023 What is your exercise level? Moderate [email or web address] Information not available 10/07/2023 Mental Status None recorded. Family History Relationship Description Onset Age of this Age Resolved Age Notes LastModified by Organization Details LastModified Time Maternal Uncle Diabetes mellitus 40 [email or web address] Not available 10/06 12:56:08 Sister High risk 30 [email or web address] Not available 10/06 12:56:08 Paternal Grandmother Malignant tumor of lung [email or web address] Not available 10/20 20:51:10 Medical History Condition [...] SNOMED-CT Code Diagnosis ICD10 Code Diagnosis Note [id number] Lyubov Hernandez [place] [address] [address] 10/07/2023 11:49:02 10/07/2023 12:33:14 Threatened miscarriage 40440999 O20.0 Z3A.01 [id number] RENU SANCHEZ MD [place] [address],[place] [address] 10/07/2023 11:50:36 10/15/2023 11:04:36 Threatened miscarriage 41206232 O20.0 - embryo seen however not c/w dates- FHT intermitte nt, 116bpm when visualized - discussed threatened miscarriag e, recommend repeat US in 1 week to reevaluate - bleeding and return precaution s given [id number] [facility] [address] [address] 10/14/2023 10:28:45 10/14/2023 11:25:21 Missed miscarriage 68957100 O02.1 Z3A.01 [id number] RENU SANCHEZ MD [place] [address] [address] 10/15/2023 10:08:06 10/15/2023 11:20:15 Missed miscarriage 21925389 O02.1 - US c/w missed miscarriag e [...] Concerns Section Related Observation LastModified by Organization Detai ls LastModified Time None Recorded Concern Status LastModified by Organization Details LastModified Time None Recorded Advance Directives Directive None Recorded Payers Encounter Date Sequence Insurance Name Policy Number Policy Mckee Covered Member ID Mckee Member ID Guarantor Name 10/07/2023 1 [facility] [id number] Claudy Waller [id number] Nieves Waller 10/07/2023 1 [facility] [id number] Claudy Waller [id number] 2 Nieves Sridhar 10/14/2023 1 [facility] [id number] Claudy Waller [id number] 2 Nieves Waller 10/14/2023 1 [facility] [id number] Claudy Waller [id number] 2 Nieves Sridhar Notes Date Note Type Note Provider Name [...] history. RENU SANCHEZ MD [address], [place], [address], [facility] 10/15/2023 10:59:19 10/14/2023 text/html Presents for ultrasound followup. Pelvic US last week demonstrated a s/d discrepancy in embryo size, as well as intermittent FHR with max of 116bpm. Discussed repeat US today to evaluate for continuing vs miscarriage. Denies bleeding or cramping RENU SANCHEZ MD [address], [place], [address], [facility] 10/15/2023 11:18:44 OBGyn Episode Ob Episode Information Episode Created Date Number of Fetuses Patient Bloodtype Patient rh Status Prepregnancy Weight lbs Domestic Partner Domestic Partner Phone Father Name Back Line Cook Status 10/21/19 24 1 CLOSED Fetus Data First Name Last Name Admitted to NICU Weight (g) Sex Living Outcome Pediatric Complications Fetus ID Race Codes Race Delivery Type 3742.13 4 M Full Term 87606 Vaginal Delivery Damien Calculation Initial Damien Date [...] Domestic Partner Domestic Partner Phone Father Name Back Line Cook Status 10/21/19 24 1 CLOSED Fetus Data First Name Last Name Admitted to NICU Weight (g) Sex Living Outcome Pediatric Complications Fetus ID Race Codes Race Delivery Type 3515.33 8 M Full Term [address]9950 Vaginal Delivery Damien Calculation Initial Damien Date [...] Domestic Partner Domestic Partner Phone Father Name Back Line Cook Status 10/21/19 24 1 CLOSED Fetus Data First Name Last Name Admitted to NICU Weight (g) Sex Living Outcome Pediatric Complications Fetus ID Race Codes Race Delivery Type 3685.43 5 M Full Term 59195 Vaginal Delivery Damien Calculation Initial Damien Date [...] Domestic Partner Domestic Partner Phone Father Name Back Line Cook Status 05/14/19 25 1 CLOSED Fetus Data First Name Last Name Admitted to NICU Weight (g) Sex Living Outcome Pediatric Complications Fetus ID Race Codes Race Delivery Type , Spontane ous 53170 Damien Calculation Initial Damien Date Initial Exam [...]
--- OUTSIDE RECORDS SUMMARY | 2024-05-23 10:00 | XMS_ITS | Clinical Summary ---
Author Organization [facility] Address [facility] [place] [address] Care Team Providers Care Trouble Clerk Name Role Phone Manuela Ram MD Primary [...] (12/01/2023): Working with psychiatry, just started lexapro. [facility], A[facility]. Sees her virtually. Assessment [...] Description 06/03/2024 9:30 AM CDT Office Visit [facility] - [address] [place] [id number] Manuela Ram MD [address] [place] [id number] Health Maintenance Due Date Last Done Comments Cervical Cancer Screening Pa p Smear (Age 30 to 64) Every 3 Years 1990 Annual Physical 1993 Hepatitis C 2008 DTaP, Tdap and Td Vaccines ( 1 - Tdap) 2009 Hepatitis B Vaccines (1 of 3 - 19+ 3-dose series) 2009 COVID-19 Vaccine ( - 2023-2 5 season) 2023 PHQ-2 (Physician [place]) 02/24/2024 12/01/2023 Cervical Cancer Screening Pa p [...] to Health Maintenance Insurance [employer] Care Teams Trouble Clerk Relationship Specialty Start Date End Date Manuela Ram MD [address] [place] [id number] PCP - General FAMILY PRACTICE 12/01/23
--- OUTSIDE RECORDS SUMMARY | 2024-05-23 10:00 | XMS_ITS ---
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 Name Role Phone LuisSona Unavailable [phone] REASON FOR VISIT RE: RE: Control Prescription Social History Sex Assigned At : Social History Observation Description Sex Assigned At Female Encounters Encounter Location Date Provider Diagnosis Raheem Casillas [address] [place] [address] 05/25/2023 Sona Luis Plan Of Treatment No Information Progress Notes * LOWELL SHEROB:1990 ( 32 yo F)Acc No.[id number]:05/25/2023 Patient: John URIAS [place] :1990 A ge:32 Y S ex:Female Address:[address] [place] [address] * true * Date: Generated for Ranjani leighann/Fagilmag/eTransmitting on: 0 05/23/2024 08:00 AM MST
[2024-05-23 10:39] LABS: Beta HCG Quantitative 128.15 mIU/ML
== END 2024-05-23 09:18 | disposition home or self-care (01) ==
LOC: ANHLAB 09:19
PROVIDERS: PCP Student in an Organized Health Care Education/Training Program; Visit Provider Obstetrics & Gynecology
DX: O20.0 Threatened abortion (principal)
CPT/HCPCS: 36415; 84702